=== PATIENT | female | born 1950 | race Caucasian/White ===

== ENCOUNTER 2017-10-20 07:32 | Inpatient (IN) | payer OTHER ==
[~2017-10-20 07:32] MED LIST: CLINDAMYCIN 900 MG/50 ML D5W IVPB IVPB; EPHEDrine SULFATE 50 MG/5 ML SYG; PROPOFOL 1000 MG INJ
[2017-10-20] MEDS: LACTATED RINGER'S 1,000 ML IV* (08:00)
[2017-10-20] MEDS ORDERED: PROPOFOL 20 ML (08:18)
[2017-10-20] MEDS ORDERED: NEOSTIGMINE 3 MG/3 ML SYRINGE (08:18)
[2017-10-20] MEDS ORDERED: GLYCOPYRROLATE 0.4 MG INJ (08:18)
[2017-10-20] MEDS ORDERED: CEFAZOLIN 1 GM INJ (08:18)
[2017-10-20] MEDS ORDERED: ONDANSETRON 4 MG INJ (08:18)
[2017-10-20] MEDS ORDERED: MIDAZOLAM 1 MG/ML 2 ML INJ (08:18)
[2017-10-20] MEDS ORDERED: DEXAMETHASONE 4 MG/ML 1 ML INJ (08:18)
[2017-10-20] MEDS ORDERED: FENTAnyl 50 MCG/ML VIAL (08:18)
[2017-10-20] MEDS ORDERED: ROCURONIUM 50 MG INJ (08:18)
[2017-10-20] MEDS ORDERED: SUGAMMADEX SODIUM 200 MG/2 ML VIAL IV (09:12)
[2017-10-20] MEDS ORDERED: POLYMYXIN B 500000 UNIT INJ (10:09)
[2017-10-20] MEDS ORDERED: morphine SULFATE/PF (10 MG/10 ML) INJ (10:53)
[2017-10-20] MEDS ORDERED: BUPIVACAINE 0.75%/DEXT (SPINAL) 2 ML INJ (10:53)
[2017-10-20] MEDS ORDERED: oxyCODONE 5 MG TAB PO ×3 (11:00)
[2017-10-20] MEDS ORDERED: BISACODYL 10 MG SUPP PR (11:00)
[2017-10-20] MEDS ORDERED: NACL 0.9% 3 ML SYG IV (11:00)
[2017-10-20] MEDS ORDERED: NA PHOSPHATE/BIPHOS 133 ML ENEMA PR (11:00)
[2017-10-20] MEDS ORDERED: DIPHENHYDRAMINE 50 MG INJ IV ×2 (11:00→13:00)
[2017-10-20] MEDS ORDERED: BETHANECHOL 25 MG TAB PO (11:00)
[2017-10-20] MEDS ORDERED: NALOXONE (0.4 MG/ML) INJ IV ×2 (11:00→13:00)
[2017-10-20] MEDS ORDERED: MEPERIDINE 10 MG/ML 30 ML PCA IV (11:00)
[2017-10-20] MEDS: TRANEXAMIC ACID 1,000 MG in NS 100 ML PRE-OP X1 IVPB (11:26)
[2017-10-20] MEDS: TRANEXAMIC ACID 1,000 MG in NS 100 ML INTRA-OP X1 IVPB (11:26)
[2017-10-20] MEDS: BACITRACIN 50000 UNITS INJ IRR (12:10)
[2017-10-20] MEDS: POLYMYXIN B 500000 UNIT INJ IRR (12:10)
[2017-10-20] MEDS ORDERED: MEPERIDINE 25 MG INJ IV (13:00)
[2017-10-20] MEDS ORDERED: LABETALOL HCL 20MG INJ IV (13:00)
[2017-10-20] MEDS ORDERED: MIDAZOLAM 1 MG/ML 2 ML INJ IV (13:00)
[2017-10-20] MEDS ORDERED: ALBUTEROL 0.083% (NEB) 2.5 MG/3 ML AMP HHN (13:00)
[2017-10-20] MEDS ORDERED: HYDROmorphONE 1 MG/5 ML IV SYRINGE IV ×3 (13:00)
[2017-10-20] MEDS ORDERED: FENTAnyl 50 MCG/ML VIAL IV (13:00)
[2017-10-20] MEDS ORDERED: IPRATROPIUM (NEB) 0.5 MG/2.5 ML AMP HHN (13:00)
[2017-10-20] MEDS ORDERED: hydrALAzine 20 MG INJ IV (13:00)
[2017-10-20] MEDS ORDERED: EPHEDrine SULFATE 50 MG/5 ML SYG IV (13:00)
[2017-10-20] MEDS ORDERED: TRIMETHOBENZAMIDE 100 MG/ML VIAL IM (13:00)
[2017-10-20] MEDS: ONDANSETRON 4 MG INJ IV ×4 (13:35→23:33)
[2017-10-20] MEDS: DOCUSATE SODIUM 100 MG CAP PO (13:39)
[2017-10-20] MEDS: ASPIRIN (EC) 325 MG TAB PO (13:39)
[2017-10-20] MEDS: HYDROmorphONE 0.2 MG/ML PCA IV ×3 (13:48→23:30)
[2017-10-20] MEDS: SOD CHLORIDE 0.9% 1,000 ML IV ×2 (13:51→18:04)
[2017-10-20] MEDS: FENTAnyl 50 MCG/ML VIAL IV ×3 (14:00→15:57)
[2017-10-20] MEDS: GABAPENTIN 100 MG CAP PO ×2 (18:01→20:56)
[2017-10-20] MEDS: VANCOMYCIN 1 GM (PMX) 250 ML IVPB (18:01)
[2017-10-20] MEDS: ACETAMINOPHEN 1000MG/100ML IV 100 ML IVPB (21:40)
[2017-10-21] MEDS: BACLOFEN 10 MG TAB PO ×4 (00:24→21:07)
[2017-10-21] MEDS: traZODone 50 MG TAB PO ×2 (00:24→21:06)
[2017-10-21] MEDS: LAMOTRIGINE 25 MG TAB PO ×2 (01:30→21:07)
[2017-10-21] MEDS: ACETAMINOPHEN 1000MG/100ML IV 100 ML IVPB ×2 (03:04→09:53)
[2017-10-21] MEDS: HYDROmorphONE 0.2 MG/ML PCA IV ×2 (03:35→08:34)
[2017-10-21] MEDS: KETOROLAC 15 MG INJ IV ×4 (04:10→22:59)
[2017-10-21 05:09] LABS: ADD MAN DIFF? NO
[2017-10-21 05:13] LABS: WHITE BLOOD COUNT 8.7 10^3/ul (4.8-10.8)
[2017-10-21 05:13] LABS: BASOPHILS % 0.2 % (0.0-2.0); HEMATOCRIT 29.4 % (37.0-47.0); HEMOGLOBIN 9.7 g/dl (12.0-16.0); LYMPHOCYTES # 1.1 10^3/ul (0.8-2.9); LYMPHOCYTES % 12.8 % (15.0-51.0); MEAN CORPUSCULAR HEMOGLOBIN 29.7 pg (29.0-33.0); MEAN CORPUSCULAR VOLUME 89.9 fl (82.0-101.0); MEAN PLATELET VOLUME 10.3 fl (7.4-10.4); MONOCYTE # 0.7 10^3/ul (0.3-0.9); MONOCYTES % 7.6 % (0.0-11.0); NEUTROPHIL # 6.9 10^3/ul (1.6-7.5); NEUTROPHILS % 79.1 % (39.0-77.0); PLATELET COUNT 144 10^3/UL (140-415); RED BLOOD COUNT 3.27 10^6/ul (4.20-5.40); RED CELL DISTRIBUTION WIDTH 12.5 % (11.5-14.5)
[2017-10-21] MEDS: PANTOPRAZOLE (EC) 40 MG TAB PO (05:41)
[2017-10-21] MEDS: VANCOMYCIN 1 GM (PMX) 250 ML IVPB (05:43)
[2017-10-21] MEDS: ONDANSETRON 4 MG INJ IV (05:43)
[2017-10-21 05:44] LABS: ADD UMIC YES; UR ASCORBIC ACID NEGATIVE (NEGATIVE); UR BACTERIA FEW /HPF (NONE SEEN); UR BILIRUBIN (Dip) NEGATIVE (NEGATIVE); UR BLOOD (Dip) 2+ mg/dL (NEGATIVE); UR CLARITY CLEAR (CLEAR); UR COLOR COLORLESS (YELLOW); UR GLUCOSE (Dip) NEGATIVE (NEGATIVE); UR KETONES (Dip) NEGATIVE (NEGATIVE); UR LEUKOCYTE ESTERASE (Dip) TRACE Leu/ul (NEGATIVE); UR NITRITE (Dip) NEGATIVE (NEGATIVE); UR RBC 2 /HPF (0-5); UR SPECIFIC GRAVITY (Dip) 1.002 (1.003-1.030); UR TOTAL PROTEIN (Dip) NEGATIVE (NEGATIVE); UR UROBILINOGEN (Dip) NEGATIVE (NEGATIVE); UR WBC 1 /HPF (0-5)
[2017-10-21 05:52] LABS: ANION GAP 9 (8-16); BLOOD UREA NITROGEN 11 mg/dl (7-20); CALCIUM 8.3 mg/dl (8.4-10.2); CARBON DIOXIDE 24 mmol/L (21-31); CHLORIDE 107 mmol/L (97-110); GLUCOSE 129 mg/dl (70-220); POTASSIUM 4.3 mmol/L (3.5-5.1); SODIUM 136 mmol/L (135-144)
[2017-10-21] MEDS: DOCUSATE SODIUM 100 MG CAP PO ×2 (08:27→21:06)
[2017-10-21] MEDS: GABAPENTIN 100 MG CAP PO ×3 (08:27→21:08)
[2017-10-21] MEDS: ASPIRIN (EC) 325 MG TAB PO (08:27)
[2017-10-21] MEDS: FERROUS FUMARATE (SR) TAB PO ×2 (08:27→21:06)
[2017-10-21] MEDS: SOD CHLORIDE 0.9% 1,000 ML IV ×2 (11:51→22:07)
[2017-10-21] MEDS: HYDROmorphONE 1 MG/ML SYG IV ×4 (12:15→23:58)
[2017-10-21] MEDS: oxyCODONE (CR) 10 MG TAB [oxyCONTIN] PO ×2 (12:16→21:08)
[2017-10-22] MEDS: HYDROmorphONE 1 MG/ML SYG IV ×5 (04:00→16:21)
[2017-10-22] MEDS: PANTOPRAZOLE (EC) 40 MG TAB PO (06:10)
[2017-10-22] MEDS: FERROUS FUMARATE (SR) TAB PO ×2 (08:15→20:39)
[2017-10-22] MEDS: DOCUSATE SODIUM 100 MG CAP PO ×2 (08:15→20:40)
[2017-10-22] MEDS: ASPIRIN (EC) 325 MG TAB PO (08:15)
[2017-10-22] MEDS: BACLOFEN 10 MG TAB PO ×3 (08:16→20:38)
[2017-10-22] MEDS: oxyCODONE (CR) 10 MG TAB [oxyCONTIN] PO ×2 (08:16→12:07)
[2017-10-22] MEDS: POLYETHYLENE GLYCOL 17 GM PACKET PO (08:16)
[2017-10-22] MEDS: GABAPENTIN 100 MG CAP PO ×3 (08:16→20:40)
[2017-10-22] MEDS: SENNA TAB PO (08:17)
[2017-10-22 10:57] LABS: ADD MAN DIFF? NO
[2017-10-22 10:58] LABS: BASOPHIL # 0.1 10^3/ul (0.0-0.1); BASOPHILS % 0.8 % (0.0-2.0); EOSINOPHILS # 0.3 10^3/ul (0.0-0.5); EOSINOPHILS % 5.1 % (0.0-7.0); HEMATOCRIT 34.5 % (37.0-47.0); HEMOGLOBIN 10.9 g/dl (12.0-16.0); LYMPHOCYTES # 1.5 10^3/ul (0.8-2.9); LYMPHOCYTES % 21.8 % (15.0-51.0); MEAN CORPUSCULAR HEMOGLOBIN 29.9 pg (29.0-33.0); MEAN CORPUSCULAR HGB CONC 31.6 g/dl (32.0-37.0); MEAN CORPUSCULAR VOLUME 94.8 fl (82.0-101.0); MEAN PLATELET VOLUME 10.2 fl (7.4-10.4); MONOCYTE # 0.5 10^3/ul (0.3-0.9); MONOCYTES % 7.2 % (0.0-11.0); NEUTROPHIL # 4.3 10^3/ul (1.6-7.5); NEUTROPHILS % 64.8 % (39.0-77.0); PLATELET COUNT 141 10^3/UL (140-415); RED BLOOD COUNT 3.64 10^6/ul (4.20-5.40); RED CELL DISTRIBUTION WIDTH 13.2 % (11.5-14.5)
[2017-10-22 10:58] LABS: WHITE BLOOD COUNT 6.7 10^3/ul (4.8-10.8)
[2017-10-22 11:20] LABS: ANION GAP 15 (8-16); BLOOD UREA NITROGEN 10 mg/dl (7-20); CALCIUM 8.4 mg/dl (8.4-10.2); CARBON DIOXIDE 26 mmol/L (21-31); CHLORIDE 103 mmol/L (97-110); CREATININE 0.63 mg/dl (0.44-1.00); GLUCOSE 91 mg/dl (70-220); SODIUM 140 mmol/L (135-144)
[2017-10-22] MEDS: SOD CHLORIDE 0.9% 1,000 ML IV (12:51)
[2017-10-22 13:23] LABS: CHOLESTEROL 147 mg/dl (100-200)
[2017-10-22 13:23] LABS: CHOL/HDL RATIO 2.1 RATIO; HDL CHOLESTEROL 69 mg/dl (35-98); LDL CHOLESTEROL,CALCULATED 64 mg/dl; TRIGLYCERIDES 71 mg/dl (0-149)
[2017-10-22] MEDS: LAMOTRIGINE 25 MG TAB PO (20:39)
[2017-10-22] MEDS: traZODone 50 MG TAB PO (20:40)
[2017-10-22] MEDS: oxyCODONE (CR) 15 MG TAB [oxyCONTIN] PO (20:41)
[2017-10-23] MEDS: SOD CHLORIDE 0.9% 1,000 ML IV ×2 (01:21→13:51)
[2017-10-23] MEDS: HYDROmorphONE 1 MG/ML SYG IV ×3 (02:32→11:18)
[2017-10-23] MEDS: PANTOPRAZOLE (EC) 40 MG TAB PO (06:36)
[2017-10-23] MEDS: SENNA/DOCUSATE NA (8.6MG/50MG) TAB PO ×2 (06:40→21:14)
[2017-10-23] MEDS: oxyCODONE (CR) 15 MG TAB [oxyCONTIN] PO ×3 (08:13→21:15)
[2017-10-23] MEDS: SENNA TAB PO (08:13)
[2017-10-23] MEDS: ASPIRIN (EC) 325 MG TAB PO (08:13)
[2017-10-23] MEDS: FERROUS FUMARATE (SR) TAB PO ×2 (08:13→21:14)
[2017-10-23] MEDS: DOCUSATE SODIUM 100 MG CAP PO ×2 (08:13→21:13)
[2017-10-23] MEDS: GABAPENTIN 100 MG CAP PO ×3 (08:13→21:14)
[2017-10-23] MEDS: BACLOFEN 10 MG TAB PO ×3 (08:14→21:14)
[2017-10-23] MEDS: POLYETHYLENE GLYCOL 17 GM PACKET PO ×2 (08:14→08:17)
[2017-10-23 08:23] LABS: ADD MAN DIFF? NO
[2017-10-23 08:30] LABS: WHITE BLOOD COUNT 7.3 10^3/ul (4.8-10.8)
[2017-10-23 08:30] LABS: BASOPHILS % 0.5 % (0.0-2.0); EOSINOPHILS # 0.5 10^3/ul (0.0-0.5); EOSINOPHILS % 6.6 % (0.0-7.0); HEMATOCRIT 35.1 % (37.0-47.0); HEMOGLOBIN 11.5 g/dl (12.0-16.0); LYMPHOCYTES % 27.1 % (15.0-51.0); MEAN CORPUSCULAR HEMOGLOBIN 29.9 pg (29.0-33.0); MEAN CORPUSCULAR HGB CONC 32.8 g/dl (32.0-37.0); MEAN CORPUSCULAR VOLUME 91.2 fl (82.0-101.0); MONOCYTE # 0.8 10^3/ul (0.3-0.9); MONOCYTES % 10.7 % (0.0-11.0); NEUTROPHILS % 54.8 % (39.0-77.0); PLATELET COUNT 148 10^3/UL (140-415); RED BLOOD COUNT 3.85 10^6/ul (4.20-5.40); RED CELL DISTRIBUTION WIDTH 13.1 % (11.5-14.5)
[2017-10-23 08:41] LABS: POSITIVE DIFF @See below
[2017-10-23 08:47] LABS: ANION GAP 10 (8-16); BLOOD UREA NITROGEN 11 mg/dl (7-20); CALCIUM 8.8 mg/dl (8.4-10.2); CARBON DIOXIDE 31 mmol/L (21-31); CHLORIDE 102 mmol/L (97-110); GLUCOSE 105 mg/dl (70-220); POTASSIUM 5.1 mmol/L (3.5-5.1); SODIUM 138 mmol/L (135-144)
[2017-10-23] MEDS: HYDROmorphONE 4 MG TAB PO (19:51)
[2017-10-23] MEDS: MAGNESIUM HYDROXIDE 30ML CUP PO (21:13)
[2017-10-23] MEDS: LAMOTRIGINE 25 MG TAB PO (21:14)
[2017-10-23] MEDS: traZODone 50 MG TAB PO (21:15)
[2017-10-24] MEDS: HYDROmorphONE 4 MG TAB PO ×4 (01:13→13:37)
[2017-10-24] MEDS: SOD CHLORIDE 0.9% 1,000 ML IV (02:21)
[2017-10-24] MEDS: PANTOPRAZOLE (EC) 40 MG TAB PO (05:21)
[2017-10-24] MEDS: GABAPENTIN 100 MG CAP PO ×2 (08:17→12:05)
[2017-10-24] MEDS: ASPIRIN (EC) 325 MG TAB PO (08:17)
[2017-10-24] MEDS: FERROUS FUMARATE (SR) TAB PO ×2 (08:17→09:00)
[2017-10-24] MEDS: oxyCODONE (CR) 15 MG TAB [oxyCONTIN] PO ×2 (08:18→12:05)
[2017-10-24] MEDS: SENNA TAB PO (08:18)
[2017-10-24] MEDS: BACLOFEN 10 MG TAB PO ×2 (08:18→12:05)
[2017-10-24] MEDS: POLYETHYLENE GLYCOL 17 GM PACKET PO (08:57)
[2017-10-24] MEDS: ONDANSETRON 4 MG TAB PO (10:39)
== END 2017-10-24 14:21 | DRG 470 ==
LOC: REC 07:32 → MS1 16:15
PROC: 0SR90JZ Replacement of Right Hip Joint with Synthetic Substitute, Open Approach (ICD-10-PCS; principal; 2017-10-20 10:30)
DX: M16.11 Unilateral primary osteoarthritis, right hip (principal); K21.9 Gastro-esophageal reflux disease without esophagitis; E78.5 Hyperlipidemia, unspecified; G89.29 Other chronic pain; F41.9 Anxiety disorder, unspecified
CPT/HCPCS: 73530; 80048; 80061; 81001; 85025; 86850; 86900; 86901; 87081; 87086; 88304; 88311; 97110; 97116; 97162; 97165; 97530